=== PATIENT | female | born 1990 | race African-American/Black ===

== ENCOUNTER 2019-06-24 13:42 | Inpatient (IN) | payer MEDICAID ==
[2019-06-24] VITALS (32 sets, daily range): BP systolic 122–151; BP diastolic 71–96; PULSE 63–93; TEMP 97.9–98.3
[~2019-06-24] VITALS: Ht 147.3 cm; Wt 108.2 kg
[~2019-06-24 13:42] MED LIST: FLEXERIL10 MG PO; NO HOME MEDICATIONS
[2019-06-24] MEDS ORDERED: CEPHALEXIN500 M1 PO (14:34)
[2019-06-24] MEDS ORDERED: CONCEPT DHA1 CAP PO (14:34)
[2019-06-24] MEDS ORDERED: CLARITIN 1010 MG/TAB (14:35)
[2019-06-24] MEDS ORDERED: PRILOSEC10 MG PO (14:35)
[2019-06-24 15:21] LABS: BASO % 0.3 % (0.0-2.0); EOS # 0.1 (0.0-0.7); EOS % 0.6 % (0-4.0); GRAN % 73.9 % (42.2-75.2); HEMATOCRIT 37.5 % (37.0-47.0); HEMOGLOBIN 12.4 g/dl (12.5-16.0); LYMPH % 18.7 % (20.0-51.0); MEAN CELL VOLUME 85 fl (80.0-100.0); MEAN CORPUSCULAR HEMOGLOBIN 28 pg (27.0-31.0); MEAN CORPUSCULAR HGB CONC 33 g/dl (33.0-37.0); MEAN PLATELET VOLUME 12.8 fl (7.4-10.4); MONO # 0.7 (0.1-0.6); PLATELET COUNT 207 K/mm3 (130-400); RED BLOOD COUNT 4.41 M/mm3 (4.10-5.30); REDCELL DISTRIBUTION WIDTH-CV 15.2 % (11.5-14.5)
[2019-06-25] VITALS (81 sets, daily range): BP systolic 92–147; BP diastolic 43–88; PULSE 62–113; TEMP 97.5–98.2
[2019-06-26 03:07] VITALS: BP 125/75; PULSE 82; TEMP 98.2
[2019-06-26 04:00] VITALS: BP 117/67; PULSE 86; TEMP 98.2
[2019-06-26] MEDS ORDERED: IBU800 M1 PO (08:54)
[2019-06-26] MEDS ORDERED: PERCOCET 325 MG1 TA2 PO (08:54)
[2019-06-26 09:44] VITALS: BP 111/61; PULSE 84; TEMP 98.1
[2019-06-26 16:19] VITALS: BP 115/65; PULSE 70; TEMP 97.8
[2019-06-26 20:30] VITALS: BP 131/85; PULSE 93; TEMP 98
[2019-06-27 07:53] VITALS: BP 131/89; PULSE 76
[2019-06-27 15:52] VITALS: BP 136/81; PULSE 98; TEMP 97.5
[2019-06-27 20:00] VITALS: BP 116/50; PULSE 85; TEMP 98.6
[2019-06-28] MEDS ORDERED: NORCO 325 MG-51 TAB PO (07:55)
[2019-06-28 08:15] VITALS: BP 121/82; PULSE 96; TEMP 98.3
== END 2019-06-28 18:00 | disposition home or self-care (01) | DRG 787 ==
LOC: LDRO 13:42 → OB 14:54 → LDR 14:54 → OB 06-26 00:17
PROVIDERS: Student in an Organized Health Care Education/Training Program; ADMIT Obstetrics & Gynecology
PROC: 10D00Z1 Extraction of Products of Conception, Low, Open Approach (ICD-10-PCS; principal; 2019-06-25)
DX: O42.92 Full-term premature rupture of membranes, unspecified as to length of time between rupture and onset of labor (principal); O23.43 Unspecified infection of urinary tract in pregnancy, third trimester; O99.820 Streptococcus B carrier state complicating pregnancy; O99.613 Diseases of the digestive system complicating pregnancy, third trimester; K21.9 Gastro-esophageal reflux disease without esophagitis; O62.0 Primary inadequate contractions; O69.81X0 Labor and delivery complicated by cord around neck, without compression, not applicable or unspecified; Z3A.39 39 weeks gestation of pregnancy; O99.214 Obesity complicating childbirth; Z37.0 Single live birth
CPT/HCPCS: J0690; J1885; J2175; J2250; J2370; J2400; J2405; J2590; J2795; J3010; J7120

== ENCOUNTER 2021-08-16 02:06 | Emergency (ER) | payer MEDICAID ==
[~2021-08-16] VITALS: Ht 167.6 cm; Wt 90.9 kg
[~2021-08-16 02:06] MED LIST changes: +CEPHALEXIN500 M1 PO; +CLARITIN 1010 MG/TAB; +CONCEPT DHA1 CAP PO; +IBU800 M1 PO; +NORCO 325 MG-51 TAB PO; +PERCOCET 325 MG1 TA2 PO; +PRILOSEC10 MG PO
[2021-08-16] MEDS ORDERED: FLEXERIL 1010 MG/TAB PO (03:26)
[2021-08-16] MEDS ORDERED: NAPROSYN500 MG PO (03:26)
[2021-08-16 03:45] VITALS: BP 125/75; PULSE 77; TEMP 97.8
== END 2021-08-16 03:45 | disposition home or self-care (01) ==
LOC: COL.ER 02:06
DX: S39.92XA Unspecified injury of lower back, initial encounter (principal); Z87.39 Personal history of other diseases of the musculoskeletal system and connective tissue; X50.1XXA Overexertion from prolonged static or awkward postures, initial encounter; Y93.E5 Activity, floor mopping and cleaning; Y92.090 Kitchen in other non-institutional residence as the place of occurrence of the external cause

== ENCOUNTER 2021-10-30 12:24 | Emergency (ER) | payer MEDICAID ==
[~2021-10-30] VITALS: Ht 149.9 cm; Wt 90.9 kg
[~2021-10-30 12:24] MED LIST changes: +FLEXERIL 1010 MG/TAB PO; +NAPROSYN500 MG PO
[2021-10-30 12:53] VITALS: TEMP 98.2
[2021-10-30] MEDS ORDERED: SPRINTEC 35 MCG1 TAB PO (12:57)
[2021-10-30] MEDS ORDERED: CLARITIN 1010 MG/TAB PO (12:58)
[2021-10-30] MEDS ORDERED: PRILOTC PO (12:58)
[2021-10-30 13:48] LABS: BASO # 0.1 K/mm3 (0.0-0.2); BASO % 0.7 % (0.0-2.0); EOS # 0.1 K/mm3 (0.0-0.7); EOS % 1.4 % (0.0-4.0); GRAN # 5.4 K/mm3 (1.4-6.5); GRAN % 64.8 % (42.2-75.2); HEMATOCRIT 39.9 % (37.0-47.0); LYMPH # 2.3 K/mm3 (1.2-3.4); LYMPH % 28.1 % (20.0-51.0); MEAN CELL VOLUME 82 fl (80.0-100.0); MEAN CORPUSCULAR HEMOGLOBIN 27 pg (27-31); MEAN CORPUSCULAR HGB CONC 33 g/dl (33.0-37.0); MEAN PLATELET VOLUME 10.5 fl (7.4-10.4); MONO # 0.4 K/mm3 (0.1-0.6); MONO % 4.8 % (1.7-9.3); PLATELET COUNT 326 K/mm3 (130-400); RED BLOOD COUNT 4.87 M/mm3 (4.10-5.30); REDCELL DISTRIBUTION WIDTH-CV 14.4 % (11.5-14.5)
[2021-10-30 14:04] LABS: ALBUMIN 3.7 gm/dL (3.5-5.0); BILIRUBIN,TOTAL 0.4 mg/dL (0.2-1.2); C-REACTIVE PROTEIN 1.83 mg/dL (0.00-0.50); CALCIUM 9.6 mg/dL (8.4-10.2); CREATININE, serum 0.97 mg/dL (0.57-1.11); POTASSIUM 4.2 mmol/L (3.5-4.5); TOTAL PROTEIN 7.6 gm/dL (6.2-8.1)
[2021-10-30 14:32] VITALS: BP 122/81; PULSE 87
== END 2021-10-30 14:32 | disposition home or self-care (01) ==
LOC: COL.ER 12:24
PROVIDERS: Family Medicine
DX: M79.661 Pain in right lower leg (principal)

== ENCOUNTER → 2021-11-11 | Outpatient (CLI) | payer MEDICAID ==
[~2021-11-11] MED LIST changes: +CLARITIN 1010 MG/TAB PO; +PRILOTC PO; +SPRINTEC 35 MCG1 TAB PO
== END ==
LOC: COL.VAS 09:24
DX: M79.89 Other specified soft tissue disorders (principal)

== ENCOUNTER 2021-12-02 09:04 | Outpatient (RCR) | payer MEDICAID | END 2021-12-07 | disposition home or self-care (01) | LOC: MKS.ESL.PT | DX: M79.604 Pain in right leg (principal); R20.2 Paresthesia of skin; M79.89 Other specified soft tissue disorders ==

== ENCOUNTER 2022-03-31 11:27 | Outpatient (RCR) | payer MEDICAID | END 2022-03-31 13:08 | disposition still patient (30) | LOC: MKS.ESL.PT 11:27 | DX: M79.604 Pain in right leg (principal); M79.89 Other specified soft tissue disorders; R20.2 Paresthesia of skin ==

== ENCOUNTER → 2022-04-29 | Outpatient (CLI) | payer MEDICAID | LOC: COL.RAD 11:33 | DX: M25.561 Pain in right knee (principal) ==

== ENCOUNTER 2022-06-12 23:06 | Emergency (ER) | payer MEDICAID ==
[~2022-06-12] VITALS: Ht 147.3 cm; Wt 79.5 kg
[2022-06-12 23:11] VITALS: TEMP 97.8
[2022-06-13] MEDS ORDERED: FLEXERIL 1010 MG/TAB PO (00:01)
[2022-06-13 00:28] VITALS: BP 140/87; PULSE 76
== END 2022-06-13 00:28 | disposition home or self-care (01) ==
LOC: COL.ER 23:06
DX: M54.50 Low back pain, unspecified (principal); V43.52XA Car driver injured in collision with other type car in traffic accident, initial encounter; Y92.410 Unspecified street and highway as the place of occurrence of the external cause
CPT/HCPCS: J1885

== ENCOUNTER 2022-08-26 19:21 | Emergency (ER) | payer MEDICAID ==
[2022-08-26 22:36] VITALS: BP 116/81; PULSE 65; TEMP 98.3
== END 2022-08-26 22:37 | disposition home or self-care (01) ==
LOC: COL.ER 19:21
DX: S33.5XXA Sprain of ligaments of lumbar spine, initial encounter (principal); S13.4XXA Sprain of ligaments of cervical spine, initial encounter; S09.90XA Unspecified injury of head, initial encounter; W18.31XA Fall on same level due to stepping on an object, initial encounter; Y92.481 Parking lot as the place of occurrence of the external cause; Y93.01 Activity, walking, marching and hiking

== ENCOUNTER 2022-12-24 12:45 | Outpatient (RCR) | payer MEDICAID | END 2023-01-04 | disposition home or self-care (01) | LOC: MKS.ESL.PT | DX: M54.50 Low back pain, unspecified (principal); G89.29 Other chronic pain; F07.81 Postconcussional syndrome; M25.559 Pain in unspecified hip; M79.606 Pain in leg, unspecified ==

== ENCOUNTER 2023-07-27 09:00 | Outpatient (RCR) | payer MEDICAID ==
[~2023-07-27 09:00] MED LIST changes: +IBU600 MG PO
== END 2023-08-06 | disposition home or self-care (01) ==
LOC: MKS.ESL.PT
DX: M25.511 Pain in right shoulder (principal)

== ENCOUNTER → 2023-11-08 | Outpatient (CLI) | payer MEDICAID ==
[~2023-11-08] MED LIST changes: +DOXYCYCLINE 10100 MG PO; +GARLIC100 MG PO; +LEXAPRO 5MG5 MG PO; +MULTIPLE VITAMI1 CAP PO; +PROAIR HFA0.09 MG/AC IH; +VITAMINC1000TA PO
== END ==
LOC: COL.RAD 15:48
DX: J06.9 Acute upper respiratory infection, unspecified (principal); R05.3 Chronic cough

== ENCOUNTER 2023-11-11 09:42 | Inpatient (IN) | payer MEDICAID ==
[~2023-11-11] VITALS: Ht 147.3 cm; Wt 81.1 kg
[~2023-11-11 09:42] MED LIST changes: -DOXYCYCLINE 10100 MG PO; -GARLIC100 MG PO; -LEXAPRO 5MG5 MG PO; -MULTIPLE VITAMI1 CAP PO; -PROAIR HFA0.09 MG/AC IH; -VITAMINC1000TA PO
[2023-11-11] MEDS ORDERED: NS 1,000 ML IV ONE (10:15)
[2023-11-11] MEDS ORDERED: Albuterol/Ipratropium 3 MG-0.5 MG/3 ML Neb Soln IH ONE (10:15)
[2023-11-11] MEDS ORDERED: LORazepam 2 MG/ML 1 ML VIAL IV ONE (10:45)
[2023-11-11 10:47] LABS: BASO # 0.1 K/mm3 (0.0-0.2); BASO % 0.6 % (0.0-2.0); EOS # 0.1 K/mm3 (0.0-0.7); EOS % 0.8 % (0.0-4.0); GRAN % 71.5 % (42.2-75.2); HEMATOCRIT 39.4 % (37.0-47.0); HEMOGLOBIN 12.3 g/dl (12.5-16.0); LYMPH # 2.9 K/mm3 (1.2-3.4); MEAN CELL VOLUME 84 fl (80.0-100.0); MEAN CORPUSCULAR HEMOGLOBIN 26 pg (27-31); MEAN CORPUSCULAR HGB CONC 31 g/dl (33.0-37.0); MEAN PLATELET VOLUME 12.9 fl (7.4-10.4); MONO # 1.1 K/mm3 (0.1-0.6); MONO % 7.1 % (1.7-9.3); PLATELET COUNT 260 K/mm3 (130-400); RED BLOOD COUNT 4.69 M/mm3 (4.10-5.30); REDCELL DISTRIBUTION WIDTH-CV 14.4 % (11.5-14.5)
[2023-11-11 11:04] LABS: ALBUMIN 2.8 gm/dL (3.5-5.0); BILIRUBIN,TOTAL 0.2 mg/dL (0.2-1.2); CALCIUM 9.8 mg/dL (8.4-10.2); CREATININE, serum 0.81 mg/dL (0.57-1.11); POTASSIUM 4.6 mmol/L (3.5-4.5); TOTAL PROTEIN 8.2 gm/dL (6.2-8.1)
[2023-11-11] MEDS ORDERED: Iohexol 300 - 100 ML VIAL IV ONE (12:14)
[2023-11-11] MEDS ORDERED: NS 100 ML IV SCH (12:15)
[2023-11-11] MEDS ORDERED: cefTRIAXone 1 G in Water For Injection,Sterile 10 ML IV ONE (12:45)
[2023-11-11 12:50] LABS: TRICYCLIC ANTIDEPRESS URINE NEGATIVE
[2023-11-11] MEDS ORDERED: PROAIR HFA0.09 MG/AC IH (12:55)
[2023-11-11] MEDS ORDERED: DOXYCYCLINE 10100 MG PO (12:55)
[2023-11-11] MEDS ORDERED: Acetaminophen 325 MG TAB PO PRN (13:30)
[2023-11-11] MEDS ORDERED: Ondansetron 4 MG/2 ML VIAL IV PRN (13:30)
[2023-11-11] MEDS ORDERED: Polyethylene Glycol 3350 17 GM PDS PO PRN (13:30)
--- NOTE | 2023-11-11 14:00 | NUR ---
JACY ARRIVED FROM ER IN STABLE CONDITIONS
[2023-11-11] MEDS ORDERED: NS 1,000 ML IV SCH (14:15)
[2023-11-11] MEDS ORDERED: LEXAPRO 5MG5 MG PO (14:24)
[2023-11-11] MEDS ORDERED: GARLIC100 MG PO (14:25)
[2023-11-11] MEDS ORDERED: MULTIPLE VITAMI1 CAP PO (14:26)
[2023-11-11] MEDS ORDERED: VITAMINC1000TA PO (14:27)
[2023-11-11 14:53] VITALS: BP 99/68; PULSE 113; TEMP 99.9
[2023-11-11] MEDS ORDERED: Albuterol/Ipratropium 3 MG-0.5 MG/3 ML Neb Soln IH PRN (15:00)
--- NOTE | 2023-11-11 15:00 | NUR ---
PATIENT SETTLED INTO ROOM AND GIVEN MULTIPLE SNACKS BY STAFF. PATIENT VOICES NO FURTHER NEEDS AND HAS NO QUESTIONS REGARDING HER PLAN OF CARE AFTER PHYSICIAN SPOKE WITH HER. CALL CHRISTIANE REYES.
[2023-11-11 15:44] VITALS: BP 106/59; PULSE 121; TEMP 97.5; TEMP 99.4
--- NOTE | 2023-11-11 18:00 | NUR ---
PATIENT DOES NOT WANT TRAY TAKEN SO SHE CAN "SAVE IT FOR LATER."
--- NOTE | 2023-11-11 18:45 | NUR ---
PATIENT DOES NOT USE CALL LIGHT, SHE INSTEAD STANDS OUTSIDE OF ROOM, AND WAITS FOR STAFF TO GREET HER/. PATIENT WAS VISIBLY UPSET STAFF HAD TAKEN HER WATER, GOT CALLED INTO A DIFFERENT ROOM AND HAD NOT BROUGHT IT BACK YET. THIS RN APOLOGIAZD TO PATIENT, HOWEVER IT DID NOT SEEM TO HELP PATIENTS OVERALL MOOD. PATIENT NOW SITTING UP IN BED, HER FAMILY AT BEDSIDE. CALL LIGHT WITHIN REACH.
[2023-11-11 19:17] VITALS: BP 118/72; PULSE 107; TEMP 98.8
--- NOTE | 2023-11-11 19:52 | NUR ---
Shift assessment completed. Pt is A&Ox4. Has concerns regarding her evening medications. This APPLIANCE SERVICER answers all questions and pt responds she feels better. She reports some pain when asked to take deep breaths, that she reports are coughin continuously earlier, which she is no longer experiencing. Pt reports though, that she is having some secretions whenever she coughs. Family present at bedside. Belongings and call light are within reach.
[2023-11-11] MEDS ORDERED: Albuterol/Ipratropium 3 MG-0.5 MG/3 ML Neb Soln IH SCH (20:00)
[2023-11-11 21:00] VITALS: BP_SYST 118
--- NOTE | 2023-11-11 21:24 | NUR ---
Pt walked to the door of her room and called this nurse. She was encouraged to use her call light and wait for one of the nurses or aids to assist her if she had needs or concerns instead of walking to the door and call the nurse from the door of her room. She was educated that having IV fluids running through an IV pump increase the risk of falling. She verbalized understanding and expressed that she only wanted her water botle filled up. This nurse assisted her after this event and she had no other concerns or requests at the time.
[2023-11-11 23:16] VITALS: BP 95/57; PULSE 107; TEMP 100
[2023-11-11 23:30] VITALS: TEMP 100.5
--- NOTE | 2023-11-11 23:39 | NUR ---
Pt experiencing a temperature of 100.5 and reporting a headache scored at 5/10. PRN tylenol offered and pt expressed concerns regarding it. Answered pt questions and she agreed have tylenol.
[2023-11-12] VITALS (9 sets, daily range): BP systolic 95–119; BP diastolic 64–77; PULSE 84–118; TEMP 97.3–98.5
--- NOTE | 2023-11-12 04:08 | NUR ---
Pt reports to this nurse that she is feeling short of air and has increased coughing with secretions. SatO2 is 92% on 1L of O2. Lungs auscultated since pt expressed feeling "something building up". Crackles on bilateral lower lobes were heard. Elsi hospitalist was notified and Fluids rate were decreased and new orders for chest x-ray for this am. Pt reports continue feeling SOA at 1L. SatO2 checked again and remains at 92%. Increased O2 at 2L for comfort, and pt reports feeling better. When this nurse was leaving her room, pt requested her PRN med for nausea. PO Zofran PRN was administered. Call light within reach.
--- NOTE | 2023-11-12 08:00 | NUR ---
Patient sitting up in bed eating breakfast. A&Ox4. VSS 2L NC O2, no reported SOB. IV CDI, fluids infusing. Denies pain. Call light within reach
[2023-11-12 08:27] LABS: BASO # 0.1 K/mm3 (0.0-0.2); BASO % 0.6 % (0.0-2.0); EOS # 0.4 K/mm3 (0.0-0.7); GRAN % 60.6 % (42.2-75.2); LYMPH # 3.6 K/mm3 (1.2-3.4); LYMPH % 27.1 % (20.0-51.0); MEAN CELL VOLUME 83 fl (80.0-100.0); MEAN CORPUSCULAR HGB CONC 32 g/dl (33.0-37.0); MEAN PLATELET VOLUME 10.9 fl (7.4-10.4); MONO % 7.7 % (1.7-9.3); PLATELET COUNT 296 K/mm3 (130-400); REDCELL DISTRIBUTION WIDTH-CV 14.3 % (11.5-14.5)
[2023-11-12 08:37] LABS: HEMATOCRIT 31.4 % (37.0-47.0); MEAN CORPUSCULAR HEMOGLOBIN 26 pg (27-31)
[2023-11-12 08:50] LABS: CALCIUM 8.7 mg/dL (8.4-10.2); CREATININE, serum 0.74 mg/dL (0.57-1.11); POTASSIUM 3.8 mmol/L (3.5-4.5)
[2023-11-12] MEDS ORDERED: Loratadine 10 MG TAB PO SCH (09:00)
[2023-11-12] MEDS ORDERED: Azithromycin 500 MG in NS 250 ML IV SCH (10:00)
--- NOTE | 2023-11-12 10:23 | NUR ---
SW met with patient to complete intake. Patient provides she lives in [facility]. Point of contacts are mother Sky Lopez [phone] and grandmother Megan Caraballo [phone] also appointed as DPOA\HC (both) during intake. Documenation reviewed, completed, signed and witnessed. Original documenation placed in chart and copies provided to patient. Patient provides she is independent with ADL's, does not utilize HH services at this time, and does not utilize DME. PCP is Dr. Berman and [facility] is [facility]. Patient provides she plans to return to her home upon DC. NISSA will continue to follow. DC plan per patient: home
[2023-11-12] MEDS ORDERED: cefTRIAXone 1 G in Water For Injection,Sterile 10 ML IV SCH (12:00)
--- NOTE | 2023-11-12 23:04 | NUR ---
Patient called nurses station very anxious. Has been non stop coughing and could not catch breath. O2 saturation 94% on 2L/NC. States she think she needs a breathing tx. Spoke with RT and will be up to administer PRN tx. Report given to primary nurse-ASHA Sue.
[2023-11-12] MEDS ORDERED: traZODone 50 MG TAB PO ONE (23:30)
[2023-11-13] VITALS (12 sets, daily range): BP systolic 95–108; BP diastolic 58–70; PULSE 81–98; TEMP 97.6–98.4
[2023-11-13] MEDS ORDERED: Ibuprofen 800 MG TAB PO PRN (07:00)
[2023-11-13 07:20] LABS: HEMOGLOBIN 10.1 g/dl (12.5-16.0); MEAN CELL VOLUME 81 fl (80.0-100.0); MEAN CORPUSCULAR HEMOGLOBIN 26 pg (27-31); MEAN CORPUSCULAR HGB CONC 33 g/dl (33.0-37.0); PLATELET COUNT 317 K/mm3 (130-400); RED BLOOD COUNT 3.82 M/mm3 (4.10-5.30); REDCELL DISTRIBUTION WIDTH-CV 14.4 % (11.5-14.5)
[2023-11-13 07:31] LABS: HEMATOCRIT 30.8 % (37.0-47.0)
[2023-11-13 07:45] LABS: CALCIUM 8.9 mg/dL (8.4-10.2); CREATININE, serum 0.72 mg/dL (0.57-1.11); MAGNESIUM 1.9 mg/dL (1.6-2.6)
[2023-11-13 08:22] LABS: BAND 7 % (0-10); EOSINOPHIL 3 % (0-4); LYMPHOCYTE 19 % (20.0-51.0); NEUTROPHILS 66 % (42.0-75.2); PLATELET ESTIMATE NORMAL (NORMAL)
--- NOTE | 2023-11-13 08:45 | NUR ---
Assessment complete. O2 2L/NC. Reports SOA at rest. Pt has productive cough but has difficulty excreting phlegm. Nasal congestion also noted. c/o dry nose. New orders rec'd.
[2023-11-13] MEDS ORDERED: guaiFENesin ER 1,200 MG **** subs to guaiFENesin 400 MG PO SCH (09:04)
[2023-11-13] MEDS ORDERED: Fluticasone Nasal 50 MCG/Spray 16 GM BOTTLE NS SCH (11:00)
[2023-11-13] MEDS ORDERED: predniSONE 20 MG TAB PO SCH (11:00)
[2023-11-13] MEDS ORDERED: Sodium Chloride 0.65% Nasal Irrig 45 ML BOTTLE NS SCH (12:00)
--- NOTE | 2023-11-13 18:14 | NUR ---
Pt rates current headache 3/10 which is her baseline. SpO2 90% on 1L/NC. Denies pain or needs at this time. Family at bedside.
[2023-11-13] MEDS ORDERED: diphenhydrAMINE 25 MG CAP PO PRN (20:15)
[2023-11-14] VITALS (11 sets, daily range): BP systolic 97–118; BP diastolic 66–78; PULSE 74–91; TEMP 97.7–98
--- NOTE | 2023-11-14 05:15 | NUR ---
PT DEVELOPED A SMALL RASH TO HER UPPER ABD AND LOWER BACK. HOSPITALIST CALLED. BENADRYL ORDERED AND GIVEN. PT FELT THE BENADRYL WAS EFFECTIVE FOR A TIME. PT FELT THE PREDNISONE WAS THE CAUSE OF HER RASH AND WANTED IT ADDED TO HER ALLERGY LIST. PT COUNSELED TO SPEAK WITH THE PROVIDER FIRST. CALL LIGHT WITHIN REACH.
[2023-11-14 06:30] LABS: HEMOGLOBIN 10.9 g/dl (12.5-16.0); MEAN CELL VOLUME 83 fl (80.0-100.0); MEAN CORPUSCULAR HEMOGLOBIN 26 pg (27-31); MEAN CORPUSCULAR HGB CONC 32 g/dl (33.0-37.0); MEAN PLATELET VOLUME 11.6 fl (7.4-10.4); PLATELET COUNT 344 K/mm3 (130-400); RED BLOOD COUNT 4.16 M/mm3 (4.10-5.30); REDCELL DISTRIBUTION WIDTH-CV 14.5 % (11.5-14.5)
[2023-11-14 06:42] LABS: HEMATOCRIT 34.5 % (37.0-47.0)
[2023-11-14 06:48] LABS: CALCIUM 9.8 mg/dL (8.4-10.2); CREATININE, serum 0.77 mg/dL (0.57-1.11); POTASSIUM 3.7 mmol/L (3.5-4.5)
[2023-11-14 07:08] LABS: BAND 7 % (0-10); LYMPHOCYTE 21 % (20.0-51.0); NEUTROPHILS 67 % (42.0-75.2); PLATELET ESTIMATE NORMAL (NORMAL)
--- NOTE | 2023-11-14 08:00 | NUR ---
PATIENT 98% ON 2 LPM, PRODUCTIVE COUGH, COARSE CRACKLES BASES.
--- NOTE | 2023-11-14 08:35 | NUR ---
Assessment completed. Patient noted resting in bed, receiving a breathing treatment upon entry to room. Pt refuses prednisone, feels it is the cause of her "rash" to her RLQ and Rt flank. Pt reported to this nurse yesterday that the RLQ and flank did not have a rash until she scratched it. This nurse notes scrathes to both areas during assessment. Pt reports SOA at rest. O2 2L/NC. Productive cough noted with pale yellow sputum. Reports h/a a /10 during bedside report but had just rec'd Motrin. Now reporting diarrhea. Provider aware and ordered Imodium. Hat placed in stool and patient instructed to call nurse if she has another episode of diarrhea so it can be observed by staff. Independent in room.
[2023-11-14] MEDS ORDERED: Loperamide 2 MG CAP PO PRN (09:45)
[2023-11-14] MEDS ORDERED: Hydrocortisone 1% Cream 30 GM TUBE TP SCH (09:52)
--- NOTE | 2023-11-14 12:49 | NUR ---
Pt reported "diarrhea" this morning to the provider but reported to this nurse that she had a "pudding" like bowel movement. Hat placed in toliet and instructed patient to call if she has anymore bowel movements. Pt later requested imodium but when asked stated that she hadn't had any further bowel movements. Pt then hopped out of bed and went to bathroom and sat on the toliet for at least 15 minutes and didn't produce a bowel movement. Patient stated she fell asleep while sitting up on toliet. Nurse had to encourage the patient to go back to bed- pt resistant but complied. Motrin administered for c/o headache 6/10 on pain scale. Hydrocortisone cream applied to rash which patient reports is itchy but states she is not scratching.
--- NOTE | 2023-11-14 19:28 | NUR ---
PATIENT SITTING ON EDGE OF BED WITH TV ON WITH NO ACUTE DISTRESS NOTED. PATIENT ON 2 LITERS OF OXYGEN VIA NC. ASSESSMENT COMPLETED. PATIENT REQUESTED SHURBERT AND WAS GIVEN. ALL NEEDS MET. BED IN LOW POSITION WITH WHEELS LOCKED WITH RAILS UP X2 AND CALL LIGHT WITHIN REACH.
--- NOTE | 2023-11-14 19:37 | NUR ---
Pt has not had any episodes of diarrhea or loose stools since last entry. Pt still reports SOA with exertion. O2 2L/NC. Pt denies pain or needs at this time.
--- NOTE | 2023-11-14 21:55 | NUR ---
PATIENT SITTING UP IN BEDSIDE RECLINER WITH TV ON WITH CELL PHONE ON TABLE TALKING FAMILY WITH NO ACUTE DISTRESS NOTED. PATIENT ON 2 LITERS OF OXYGEN VIA NC. MEDICATION ADMINISTRATION COMPLETED. SEE EMAR. ALL NEEDS MET. RECLINER LOCKED AND CALL LIGHT WITHIN REACH.
[2023-11-15] VITALS (12 sets, daily range): BP systolic 93–111; BP diastolic 56–76; PULSE 77–93; TEMP 97.4–98.4
--- NOTE | 2023-11-15 06:38 | NUR ---
PATIENT RESTED AT INTERVALS. ITCHING BETTER WITH BENEDRYL AND HYDROCORTIZONE. INT INTACT. TELEMETRY INTACT. BED IN LOW POSITION WITH WHEELS LOCKED WITH RAILS UP X2 AND CALL LIGHT WITHIN REACH.
[2023-11-15 07:52] LABS: HEMOGLOBIN 10.7 g/dl (12.5-16.0); MEAN CELL VOLUME 82 fl (80.0-100.0); MEAN CORPUSCULAR HEMOGLOBIN 26 pg (27-31); MEAN CORPUSCULAR HGB CONC 32 g/dl (33.0-37.0); MEAN PLATELET VOLUME 9.9 fl (7.4-10.4); PLATELET COUNT 369 K/mm3 (130-400); RED BLOOD COUNT 4.06 M/mm3 (4.10-5.30); REDCELL DISTRIBUTION WIDTH-CV 14.6 % (11.5-14.5)
[2023-11-15 08:08] LABS: CALCIUM 8.8 mg/dL (8.4-10.2); CREATININE, serum 0.81 mg/dL (0.57-1.11); POTASSIUM 4.4 mmol/L (3.5-4.5)
[2023-11-15 08:18] LABS: HEMATOCRIT 33.3 % (37.0-47.0)
--- NOTE | 2023-11-15 08:44 | NUR ---
Patient alert and oriented x4. Complains of headache 6/10 pain level, PRN Ibuprofen adminsitered. Shift assessment complete, lung sounds clear to left side and fine crackles noted to right side goldman. Patient is on 1L O2 and 98%, complains of shortness of breath with exertion. Patient able to ambulate around room and get in and out of bed with physical ease, but complains of dizziness and difficulty breathing. Rash noted to abdomen, back, and sides. Rash is small/red pin point size with scattered clusters. Hydrocortisone cream applied to affected areas. Patient has adequate appetite and ate 100% of breafast, tolerating fluids well. States diarrhea that she had yesterday has ended and she is having formed stool now. Patient in bed with call light in reach, all needs met at this time.
[2023-11-15 09:11] LABS: BAND 4 % (0-10); EOSINOPHIL 4 % (0-4); LYMPHOCYTE 29 % (20.0-51.0); METAMYELOCYTE 1 % (0-0); NEUTROPHILS 59 % (42.0-75.2)
[2023-11-15 09:12] LABS: ANISOCYTOSIS 1+; HYPOCHROMIA 1+; PLATELET ESTIMATE NORMAL (NORMAL)
--- NOTE | 2023-11-15 12:22 | NUR ---
Patient complains of burning pain to IV at right AC. IV site able to flush, but patient had notable discomfort when doing so. Skin underneath IV extension irritated from clamp as well. New IV placed to left AC x2 attempts and patent. Patient in bed with call light in reach, all needs met at this time.
--- NOTE | 2023-11-15 18:13 | NUR ---
Patient remains stable on 1L of O2. Ambulating around room at baseline. Complained of headache again around 1600 and PRN Ibuprofen administered along with Benadryl for rash itching. Visitor at bedside. Patient tolerating food and fluids well. Currently in bed with call light in reach, all needs met at this time.
--- NOTE | 2023-11-15 19:15 | NUR ---
PATIENT RESTING IN BED WITH TV OFF WITH NO ACUTE DISTRESS NOTED. PATIENT ON 1 LITER OF OXYGEN VIA NC. INT INTACT TO LEFT AC WITH NO COMPLICATIONS NOTED. ASSESSMENT COMPLETED. PATIENT TOLERATED WELL. PATIENT C/O HEADACHE AND STATED PAIN LEVEL OF 8 ON A SCALE OF 0 TO 10. PATIENT ALSO C/O ITCHING. TYLENOL AND BENADRYL GIVEN PER MD ORDERS, SEE EMAR. PATIENT AMBULATED TO BATHROOM AND BACK TO BED. PATIENT DENIES ANY OTHER NEEDS AT THIS TIME. BED IN LOW POSITION WITH WHEELS LOCKED WTIH RAILS UP X2 AND CALL LIGHT WITHIN RECH.
--- NOTE | 2023-11-15 20:52 | NUR ---
PATIENT RESTING IN BED WITH CELL PHONE IN HAND WITH NO ACUTE DISTRESS NOTED. PATIENT ON 1 LITERS OF OXYGEN VIA NC. MEDICATION ADMINISTRATION COMPLETED AT THIS TIME. PATIENT TOLERATED WELL. PATIENT VOICED CONCERN OF SMALL ROUND DOT OF BLOOD IN RECENT EXPECTORATION OF PHLGEM. PATIENT STATES "I JUST BLEW MY NOSE AND I THOUGHT I WAS GOING TO HAVE A NOSE BLEED BECUASE THE OXYGEN IS DRYING MY NOSE OUT." PATIENT VERBALIZED UNDERSTANDING TO CALL PRIMARY NURSE IF SHE DOES COUGH UP BLOOD. PATIENT DENIES ANY OTHER NEEDS AT THIS TIME. BED IN LOW POSITION WITH WHEELS LOCKED WITH RAILS UP X2 AND CALL LIGHT WITHIN REACH.
[2023-11-16] VITALS (7 sets, daily range): BP systolic 107–129; BP diastolic 69–83; PULSE 86–93; TEMP 97.7–98
[2023-11-16 07:32] LABS: CALCIUM 8.9 mg/dL (8.4-10.2); CREATININE, serum 0.75 mg/dL (0.57-1.11); MAGNESIUM 1.9 mg/dL (1.6-2.6); POTASSIUM 4.3 mmol/L (3.5-4.5)
--- NOTE | 2023-11-16 09:03 | NUR ---
Assessment completed. Up in room independently. On RA. Reports SOA with exertion. Shows this nurse a picture of her "loose" bowel movement which was noted to be semi formed. Tylenol administered for c/o 6/10 pain to head. Requests this nurse put hydrocortisone on her abdomen and back due to itching from her rash. This nurse applied hydrocortisone cream to back and instructed patient to apply cream to her abdomen which she does without complaint.
[2023-11-16 09:45] LABS: HEMATOCRIT 36.7 % (37.0-47.0); HEMOGLOBIN 11.7 g/dl (12.5-16.0); MEAN CELL VOLUME 82 fl (80.0-100.0); MEAN CORPUSCULAR HEMOGLOBIN 26 pg (27-31); MEAN CORPUSCULAR HGB CONC 32 g/dl (33.0-37.0); MEAN PLATELET VOLUME 10.1 fl (7.4-10.4); PLATELET COUNT 157 K/mm3 (130-400); RED BLOOD COUNT 4.49 M/mm3 (4.10-5.30); REDCELL DISTRIBUTION WIDTH-CV 14.4 % (11.5-14.5)
[2023-11-16 11:06] LABS: BAND 6 % (0-10); EOSINOPHIL 5 % (0-4); LYMPHOCYTE 30 % (20.0-51.0); NEUTROPHILS 54 % (42.0-75.2)
[2023-11-16 11:07] LABS: HYPOCHROMIA 1+; PLATELET ESTIMATE NORMAL (NORMAL)
[2023-11-16] MEDS ORDERED: OMNICEF 300MG300 MG PO (11:11)
[2023-11-16] MEDS ORDERED: PROAIR HFA0.09 MG/AC IH (11:12)
[2023-11-16] MEDS ORDERED: FLONASE NASAL S16 GM NS (11:13)
--- NOTE | 2023-11-16 13:50 | NUR ---
Discharge instructions reviewed with patient- pt verbalizes understanding. Last dose of Rocephin administered. INT d/c'd with cath tip intact. Pt escorted via w/c to private vehicle and discharged home with friend.
== END 2023-11-16 13:50 | disposition home or self-care (01) | DRG 871 ==
LOC: COL.ER 09:42 → MEDICAL 13:12
PROVIDERS: Hospitalist; Physician Assistant; ADMIT Internal Medicine
DX: A41.9 Sepsis, unspecified organism (principal); J18.9 Pneumonia, unspecified organism; J96.01 Acute respiratory failure with hypoxia; Z20.822 Contact with and (suspected) exposure to COVID-19; F41.9 Anxiety disorder, unspecified; J45.990 Exercise induced bronchospasm; L27.0 Generalized skin eruption due to drugs and medicaments taken internally; F32.A Depression, unspecified; T38.0X5A Adverse effect of glucocorticoids and synthetic analogues, initial encounter; R79.89 Other specified abnormal findings of blood chemistry; Z23 Encounter for immunization; Z88.1 Allergy status to other antibiotic agents; Z88.0 Allergy status to penicillin; Z88.2 Allergy status to sulfonamides; Z88.8 Allergy status to other drugs, medicaments and biological substances
CPT/HCPCS: J0456; J0696; J1650; J2060; J7030; J7050; J7512; Q9967

== ENCOUNTER 2023-12-27 13:38 | Emergency (ER) | payer MEDICAID ==
[~2023-12-27] VITALS: Ht 147.3 cm; Wt 81.8 kg
[~2023-12-27 13:38] MED LIST changes: +DOXYCYCLINE 10100 MG PO; +FLONASE NASAL S16 GM NS; +GARLIC100 MG PO; +LEXAPRO 5MG5 MG PO; +MULTIPLE VITAMI1 CAP PO; +OMNICEF 300MG300 MG PO; +PROAIR HFA0.09 MG/AC IH; +VITAMINC1000TA PO
[2023-12-27 14:00] VITALS: TEMP 98.7
[2023-12-27 15:02] LABS: BASO # 0.1 K/mm3 (0.0-0.2); BASO % 0.8 % (0.0-2.0); EOS # 0.2 K/mm3 (0.0-0.7); EOS % 1.8 % (0.0-4.0); GRAN # 5.9 K/mm3 (1.4-6.5); HEMATOCRIT 40.2 % (37.0-47.0); HEMOGLOBIN 12.7 g/dl (12.5-16.0); LYMPH # 2.5 K/mm3 (1.2-3.4); LYMPH % 26.4 % (20.0-51.0); MEAN CELL VOLUME 84 fl (80.0-100.0); MEAN CORPUSCULAR HEMOGLOBIN 27 pg (27-31); MEAN CORPUSCULAR HGB CONC 32 g/dl (33.0-37.0); MEAN PLATELET VOLUME 11.2 fl (7.4-10.4); MONO # 0.6 K/mm3 (0.1-0.6); MONO % 6.7 % (1.7-9.3); PLATELET COUNT 265 K/mm3 (130-400); RED BLOOD COUNT 4.77 M/mm3 (4.10-5.30); REDCELL DISTRIBUTION WIDTH-CV 16.4 % (11.5-14.5)
[2023-12-27 15:16] LABS: ALANINE AMINOTRANSFERASE 15 U/L (0-55); ALBUMIN 3.6 gm/dL (3.5-5.0); ALKALINE PHOSPHATASE 83 U/L (40-150); ANION GAP 11 mmol/L (7-16); AST,SGOT 25 U/L (5-34); BILIRUBIN,TOTAL 0.2 mg/dL (0.2-1.2); BLOOD UREA NITROGEN 12 mg/dL (7-19); CALCIUM 9.8 mg/dL (8.4-10.2); CARBON DIOXIDE 23 mmol/L (22-29); CHLORIDE 106 mmol/L (98-107); CREATININE, serum 0.87 mg/dL (0.57-1.11); GLUCOSE 95 mg/dL (70-99); POTASSIUM 4.2 mmol/L (3.5-4.5); SODIUM 140 mmol/L (136-145); TOTAL PROTEIN 7.5 gm/dL (6.2-8.1)
[2023-12-27 15:35] LABS: TROPONIN-I < 0.010 ng/mL (0.00-0.033)
[2023-12-27 17:07] VITALS: BP 110/78; PULSE 60
== END 2023-12-27 17:07 | disposition home or self-care (01) ==
LOC: COL.ER 13:38
PROVIDERS: Physician Assistant
DX: R04.2 Hemoptysis (principal)

== ENCOUNTER 2024-01-10 17:14 | Emergency (ER) | payer MEDICAID ==
[~2024-01-10] VITALS: Ht 147.3 cm; Wt 81.8 kg
[2024-01-10 17:18] VITALS: TEMP 99.3
[2024-01-10] MEDS ORDERED: diphenhydrAMINE 50 MG/ML 1 ML VIAL IV ONE (18:00)
[2024-01-10] MEDS ORDERED: Ketorolac 30 MG/ML VIAL IV ONE (18:00)
[2024-01-10] MEDS ORDERED: NS 500 ML IV ONE (18:00)
[2024-01-10] MEDS ORDERED: dexAMETHasone 10 MG/ML VIAL IV ONE (18:15)
[2024-01-10 18:58] LABS: BASO # 0.1 K/mm3 (0.0-0.2); BASO % 0.6 % (0.0-2.0); EOS # 0.2 K/mm3 (0.0-0.7); EOS % 1.7 % (0.0-4.0); GRAN # 5.5 K/mm3 (1.4-6.5); GRAN % 58.4 % (42.2-75.2); HEMATOCRIT 38.7 % (37.0-47.0); HEMOGLOBIN 12.4 g/dl (12.5-16.0); LYMPH # 3.2 K/mm3 (1.2-3.4); LYMPH % 33.6 % (20.0-51.0); MEAN CELL VOLUME 83 fl (80.0-100.0); MEAN CORPUSCULAR HEMOGLOBIN 26 pg (27-31); MEAN CORPUSCULAR HGB CONC 32 g/dl (33.0-37.0); MONO # 0.5 K/mm3 (0.1-0.6); MONO % 5.5 % (1.7-9.3); PLATELET COUNT 224 K/mm3 (130-400); RED BLOOD COUNT 4.69 M/mm3 (4.10-5.30); REDCELL DISTRIBUTION WIDTH-CV 16.6 % (11.5-14.5)
[2024-01-10 20:15] LABS: ALANINE AMINOTRANSFERASE 15 U/L (0-55); ALBUMIN 3.1 gm/dL (3.5-5.0); ALKALINE PHOSPHATASE 73 U/L (40-150); ANION GAP 9 mmol/L (7-16); AST,SGOT 28 U/L (5-34); BILIRUBIN,TOTAL 0.2 mg/dL (0.2-1.2); BLOOD UREA NITROGEN 12 mg/dL (7-19); CALCIUM 8.9 mg/dL (8.4-10.2); CARBON DIOXIDE 21 mmol/L (22-29); CHLORIDE 109 mmol/L (98-107); CREATININE, serum 0.96 mg/dL (0.57-1.11); GLUCOSE 93 mg/dL (70-99); POTASSIUM 3.5 mmol/L (3.5-4.5); SODIUM 139 mmol/L (136-145); TOTAL PROTEIN 6.3 gm/dL (6.2-8.1)
[2024-01-10 20:24] LABS: TROPONIN-I < 0.010 ng/mL (0.00-0.033)
[2024-01-10] MEDS ORDERED: FLEXERIL 1010 MG/TAB PO (20:51)
[2024-01-10 21:00] VITALS: BP 109/63; PULSE 70
== END 2024-01-10 21:00 | disposition home or self-care (01) ==
LOC: COL.ER 17:14
PROVIDERS: Internal Medicine
DX: S16.1XXA Strain of muscle, fascia and tendon at neck level, initial encounter (principal); G43.109 Migraine with aura, not intractable, without status migrainosus; G56.02 Carpal tunnel syndrome, left upper limb; R07.89 Other chest pain; X58.XXXA Exposure to other specified factors, initial encounter
CPT/HCPCS: J1100; J1200; J1885; J2765; J3475; J7040

== ENCOUNTER → 2024-02-01 | Outpatient (CLI) | payer MEDICAID ==
[~2024-02-01] MED LIST changes: +Iohexol 300 - 100 ML VIAL IV ONE; +NS 100 ML IV SCH
== END ==
LOC: COL.RAD 12:31
DX: K76.0 Fatty (change of) liver, not elsewhere classified (principal); R05.3 Chronic cough; R07.9 Chest pain, unspecified; R04.2 Hemoptysis
CPT/HCPCS: Q9967